=== PATIENT | male | born 1985 | race Caucasian/White ===

== ENCOUNTER 2016-03-23 18:48 | Inpatient (IN) | payer MEDICAID ==
[~2016-03-23] VITALS: Ht 175.3 cm; Wt 104.4 kg
[2016-03-23 17:15] VITALS: BP 106/67
[~2016-03-23 18:48] MED LIST: DIVA500T52 PO; FLUO-191 PO; LORA1TAB3 PO; PANT40TA25 PO; RISP3 PO
[2016-03-23 19:05] VITALS: BP 106/67
[2016-03-23] MEDS: LORazepam 1 MG TABLET PO SCH (19:55)
[2016-03-23] MEDS: RisperiDONE 3 MG TABLET PO SCH (19:55)
[2016-03-23] MEDS: ZOLPIDEM TARTRATE 10 MG TABLET PO PRN (20:50)
[2016-03-23] MEDS: DIVALPROEX SODIUM 500 MG ER TABLET PO SCH (20:50)
[2016-03-24] MEDS: NICOTINE 21 MG/24 HOUR PATCH TD SCH (09:58)
[2016-03-24] MEDS: LORazepam 1 MG TABLET PO SCH ×2 (09:58→16:16)
[2016-03-24] MEDS: RisperiDONE 3 MG TABLET PO SCH ×2 (09:58→16:16)
[2016-03-24] MEDS: FLUoxetine HCL 20 MG CAPSULE PO SCH (09:59)
[2016-03-24 10:00] VITALS: BP 124/71
[2016-03-24] MEDS: LORazepam 1 MG TABLET PO PRN ×2 (13:05→17:06)
[2016-03-24 16:21] VITALS: BP 122/79
[2016-03-24] MEDS: DIVALPROEX SODIUM 500 MG ER TABLET PO SCH (20:40)
[2016-03-24] MEDS: ZOLPIDEM TARTRATE 10 MG TABLET PO PRN (22:41)
[2016-03-25 08:07] VITALS: BP 148/95
[2016-03-25] MEDS: RisperiDONE 3 MG TABLET PO SCH ×2 (08:16→17:19)
[2016-03-25] MEDS: LORazepam 1 MG TABLET PO SCH ×2 (08:16→17:19)
[2016-03-25] MEDS: FLUoxetine HCL 20 MG CAPSULE PO SCH (08:16)
[2016-03-25] MEDS: NICOTINE 21 MG/24 HOUR PATCH TD SCH (08:18)
[2016-03-25] MEDS: LORazepam 1 MG TABLET PO PRN ×3 (10:25→17:52)
[2016-03-25 16:16] VITALS: BP 130/78
[2016-03-25] MEDS: DIVALPROEX SODIUM 500 MG ER TABLET PO SCH (20:20)
[2016-03-25] MEDS ORDERED: QUEtiapine FUMARATE 300 MG ER TABLET PO SCH (21:00)
[2016-03-25] MEDS: ZOLPIDEM TARTRATE 10 MG TABLET PO PRN (21:04)
[2016-03-26 07:52] LABS: ALBUMIN 3.7 g/dL (3.4-5.0); BILIRUBIN,TOTAL 0.4 mg/dL (0.1-1.0); TOTAL PROTEIN, SERUM 6.9 g/dL (6.4-8.2)
[2016-03-26 07:54] LABS: BILIRUBIN,DIRECT 0.1 mg/dL (0.00-0.20)
[2016-03-26 09:00] VITALS: BP 144/89
[2016-03-26] MEDS: FLUoxetine HCL 20 MG CAPSULE PO SCH (10:29)
[2016-03-26] MEDS: LORazepam 1 MG TABLET PO SCH ×2 (10:29→16:17)
[2016-03-26] MEDS: NICOTINE 21 MG/24 HOUR PATCH TD SCH (10:30)
[2016-03-26] MEDS: LORazepam 1 MG TABLET PO PRN ×3 (12:20→18:41)
[2016-03-26 18:45] VITALS: BP 134/86
[2016-03-26] MEDS: DIVALPROEX SODIUM 500 MG ER TABLET PO SCH (20:03)
[2016-03-26] MEDS: ZOLPIDEM TARTRATE 10 MG TABLET PO PRN (20:57)
[2016-03-26] MEDS ORDERED: QUEtiapine FUMARATE 300 MG ER TABLET PO SCH (21:00)
[2016-03-27] MEDS: FLUoxetine HCL 20 MG CAPSULE PO SCH (10:11)
[2016-03-27] MEDS: NICOTINE 21 MG/24 HOUR PATCH TD SCH (10:11)
[2016-03-27] MEDS: LORazepam 1 MG TABLET PO SCH ×2 (10:11→16:21)
[2016-03-27 15:03] VITALS: BP 136/82
[2016-03-27 16:36] VITALS: BP 116/69
[2016-03-27] MEDS: QUEtiapine FUMARATE 200 MG ER TABLET PO SCH (20:18)
[2016-03-27] MEDS: DIVALPROEX SODIUM 500 MG ER TABLET PO SCH (20:18)
[2016-03-27] MEDS: ZOLPIDEM TARTRATE 10 MG TABLET PO PRN (21:21)
[2016-03-27] MEDS: LORazepam 1 MG TABLET PO PRN (21:21)
[2016-03-28 07:05] VITALS: BP 120/70
[2016-03-28 08:50] VITALS: BP 133/85
[2016-03-28] MEDS: LORazepam 1 MG TABLET PO SCH ×2 (09:52→16:14)
[2016-03-28] MEDS: FLUoxetine HCL 20 MG CAPSULE PO SCH (09:53)
[2016-03-28] MEDS: NICOTINE 21 MG/24 HOUR PATCH TD SCH (10:04)
[2016-03-28] MEDS: LORazepam 1 MG TABLET PO PRN ×2 (12:41→18:57)
[2016-03-28 16:42] VITALS: BP 128/74
[2016-03-28] MEDS: QUEtiapine FUMARATE 200 MG ER TABLET PO SCH (19:58)
[2016-03-28] MEDS: DIVALPROEX SODIUM 500 MG ER TABLET PO SCH (19:58)
[2016-03-28] MEDS: ZOLPIDEM TARTRATE 10 MG TABLET PO PRN ×2 (20:08→20:54)
[2016-03-29 08:00] VITALS: BP 103/68
[2016-03-29] MEDS: NICOTINE 21 MG/24 HOUR PATCH TD SCH (09:49)
[2016-03-29] MEDS: FLUoxetine HCL 20 MG CAPSULE PO SCH (09:50)
[2016-03-29] MEDS: LORazepam 1 MG TABLET PO SCH ×2 (09:50→16:05)
[2016-03-29] MEDS: LORazepam 1 MG TABLET PO PRN ×2 (13:07→19:59)
[2016-03-29 16:56] VITALS: BP 125/75
[2016-03-29] MEDS: DIVALPROEX SODIUM 500 MG ER TABLET PO SCH (20:21)
[2016-03-29] MEDS: QUEtiapine FUMARATE 200 MG ER TABLET PO SCH (20:21)
[2016-03-29] MEDS: ZOLPIDEM TARTRATE 10 MG TABLET PO PRN (21:00)
[2016-03-30 06:30] VITALS: BP 123/69
[2016-03-30] MEDS: FLUoxetine HCL 20 MG CAPSULE PO SCH (09:14)
[2016-03-30] MEDS: NICOTINE 21 MG/24 HOUR PATCH TD SCH (09:14)
[2016-03-30] MEDS: LORazepam 1 MG TABLET PO SCH ×2 (09:14→17:05)
[2016-03-30] MEDS: LORazepam 1 MG TABLET PO PRN ×2 (12:55→21:41)
[2016-03-30 13:08] VITALS: BP 128/78
[2016-03-30 18:00] VITALS: BP 133/71
[2016-03-30] MEDS: QUEtiapine FUMARATE 200 MG ER TABLET PO SCH (20:27)
[2016-03-30] MEDS: DIVALPROEX SODIUM 500 MG ER TABLET PO SCH (20:27)
[2016-03-30] MEDS: ZOLPIDEM TARTRATE 5 MG TABLET PO PRN (21:15)
[2016-03-31] MEDS: LORazepam 1 MG TABLET PO PRN ×5 (02:02→22:15)
[2016-03-31 08:38] VITALS: BP 116/75
[2016-03-31] MEDS: LORazepam 1 MG TABLET PO SCH ×2 (08:57→17:19)
[2016-03-31] MEDS: FLUoxetine HCL 20 MG CAPSULE PO SCH (08:57)
[2016-03-31] MEDS: NICOTINE 21 MG/24 HOUR PATCH TD SCH (09:01)
[2016-03-31 16:01] VITALS: BP 136/73
[2016-03-31] MEDS: DIVALPROEX SODIUM 500 MG ER TABLET PO SCH (20:15)
[2016-03-31] MEDS: ZOLPIDEM TARTRATE 5 MG TABLET PO PRN (20:15)
[2016-03-31] MEDS: QUEtiapine FUMARATE 200 MG ER TABLET PO SCH (20:15)
[2016-04-01 00:09] VITALS: BP 120/74
[2016-04-01] MEDS: LORazepam 1 MG TABLET PO SCH ×3 (09:00→16:27)
[2016-04-01] MEDS: FLUoxetine HCL 20 MG CAPSULE PO SCH (09:55)
[2016-04-01] MEDS: NICOTINE 21 MG/24 HOUR PATCH TD SCH (09:55)
[2016-04-01 10:43] VITALS: BP 99/54
[2016-04-01 16:00] VITALS: BP 135/85
[2016-04-01] MEDS: DIVALPROEX SODIUM 500 MG ER TABLET PO SCH (20:17)
[2016-04-01] MEDS: QUEtiapine FUMARATE 200 MG ER TABLET PO SCH (20:17)
[2016-04-01] MEDS: ZOLPIDEM TARTRATE 5 MG TABLET PO PRN (21:17)
[2016-04-01] MEDS: LORazepam 1 MG TABLET PO PRN (22:04)
[2016-04-02 02:09] VITALS: BP 127/68
[2016-04-02 11:00] VITALS: BP 96/58
[2016-04-02] MEDS: FLUoxetine HCL 20 MG CAPSULE PO SCH (11:12)
[2016-04-02] MEDS: LORazepam 1 MG TABLET PO SCH ×2 (11:12→17:06)
[2016-04-02] MEDS: NICOTINE 21 MG/24 HOUR PATCH TD SCH (11:13)
[2016-04-02] MEDS: LORazepam 1 MG TABLET PO PRN ×2 (15:43→23:49)
[2016-04-02 16:00] VITALS: BP 133/73
[2016-04-02 18:15] VITALS: BP 122/66
[2016-04-02] MEDS: QUEtiapine FUMARATE 200 MG ER TABLET PO SCH (20:23)
[2016-04-02] MEDS: DIVALPROEX SODIUM 500 MG ER TABLET PO SCH (20:24)
[2016-04-02] MEDS: ZOLPIDEM TARTRATE 5 MG TABLET PO PRN (21:36)
[2016-04-03] MEDS: IBUPROFEN 600 MG TABLET PO PRN (00:02)
[2016-04-03 09:00] VITALS: BP 123/79
[2016-04-03] MEDS: FLUoxetine HCL 20 MG CAPSULE PO SCH (11:49)
[2016-04-03] MEDS: LORazepam 1 MG TABLET PO SCH ×2 (11:50→16:16)
[2016-04-03] MEDS: NICOTINE 21 MG/24 HOUR PATCH TD SCH (11:50)
[2016-04-03 16:30] VITALS: BP 103/60
[2016-04-03] MEDS: LORazepam 1 MG TABLET PO PRN ×2 (19:49→22:43)
[2016-04-03] MEDS: QUEtiapine FUMARATE 200 MG ER TABLET PO SCH (20:20)
[2016-04-03] MEDS: DIVALPROEX SODIUM 500 MG ER TABLET PO SCH (20:21)
[2016-04-03] MEDS: ZOLPIDEM TARTRATE 5 MG TABLET PO PRN (21:42)
[2016-04-04 08:30] VITALS: BP 109/56
[2016-04-04] MEDS: NICOTINE 21 MG/24 HOUR PATCH TD SCH (09:23)
[2016-04-04] MEDS: FLUoxetine HCL 20 MG CAPSULE PO SCH (09:23)
[2016-04-04] MEDS: LORazepam 1 MG TABLET PO SCH ×2 (09:23→16:38)
[2016-04-04] MEDS: LORazepam 1 MG TABLET PO PRN ×3 (14:52→23:55)
[2016-04-04 16:00] VITALS: BP 123/78
[2016-04-04] MEDS: QUEtiapine FUMARATE 300 MG TABLET PO SCH (20:27)
[2016-04-04] MEDS: DIVALPROEX SODIUM 500 MG ER TABLET PO SCH (20:27)
[2016-04-04] MEDS: ZOLPIDEM TARTRATE 5 MG TABLET PO PRN (21:21)
[2016-04-05 01:43] VITALS: BP 132/79
[2016-04-05] MEDS: IBUPROFEN 600 MG TABLET PO PRN (01:45)
[2016-04-05] MEDS: LORazepam 1 MG TABLET PO PRN ×4 (02:57→23:59)
[2016-04-05] MEDS: ACETAMINOPHEN 325 MG TABLET PO PRN (04:25)
[2016-04-05] MEDS: QUEtiapine FUMARATE 300 MG TABLET PO SCH ×3 (08:43→16:05)
[2016-04-05] MEDS: FLUoxetine HCL 20 MG CAPSULE PO SCH (08:43)
[2016-04-05] MEDS: LORazepam 1 MG TABLET PO SCH ×2 (08:43→16:05)
[2016-04-05] MEDS: NICOTINE 21 MG/24 HOUR PATCH TD SCH (08:48)
[2016-04-05 16:18] VITALS: BP 119/70
[2016-04-05] MEDS: DIVALPROEX SODIUM 500 MG ER TABLET PO SCH (20:30)
[2016-04-05] MEDS: ZOLPIDEM TARTRATE 5 MG TABLET PO PRN (21:23)
[2016-04-06 06:29] VITALS: BP 124/74
[2016-04-06 08:00] VITALS: BP 123/77
[2016-04-06] MEDS: FLUoxetine HCL 20 MG CAPSULE PO SCH ×2 (09:00→11:12)
[2016-04-06] MEDS: QUEtiapine FUMARATE 300 MG TABLET PO SCH ×3 (09:00→17:04)
[2016-04-06] MEDS: LORazepam 1 MG TABLET PO SCH ×2 (09:00→17:04)
[2016-04-06] MEDS: NICOTINE 21 MG/24 HOUR PATCH TD SCH (11:11)
[2016-04-06 16:18] VITALS: BP 110/72
[2016-04-06] MEDS: DIVALPROEX SODIUM 500 MG ER TABLET PO SCH (20:36)
[2016-04-06] MEDS: ZOLPIDEM TARTRATE 5 MG TABLET PO PRN (21:39)
[2016-04-06] MEDS: LORazepam 1 MG TABLET PO PRN ×2 (21:39→23:40)
[2016-04-07 03:32] VITALS: BP 144/77
[2016-04-07 08:15] VITALS: BP 118/74
[2016-04-07] MEDS: QUEtiapine FUMARATE 300 MG TABLET PO SCH ×3 (09:00→16:20)
[2016-04-07] MEDS: LORazepam 1 MG TABLET PO SCH ×2 (09:00→16:20)
[2016-04-07] MEDS: NICOTINE 21 MG/24 HOUR PATCH TD SCH (09:00)
[2016-04-07] MEDS: FLUoxetine HCL 20 MG CAPSULE PO SCH (11:25)
[2016-04-07 16:45] VITALS: BP 111/71
[2016-04-07] MEDS: DIVALPROEX SODIUM 500 MG ER TABLET PO SCH (19:56)
[2016-04-07] MEDS: ZOLPIDEM TARTRATE 5 MG TABLET PO PRN (21:51)
[2016-04-07] MEDS: LORazepam 1 MG TABLET PO PRN ×2 (21:51→23:59)
[2016-04-08] MEDS: LORazepam 1 MG TABLET PO PRN ×4 (06:13→22:37)
[2016-04-08 08:02] VITALS: BP 123/73
[2016-04-08] MEDS: FLUoxetine HCL 20 MG CAPSULE PO SCH (09:17)
[2016-04-08] MEDS: QUEtiapine FUMARATE 300 MG TABLET PO SCH ×3 (09:17→16:26)
[2016-04-08] MEDS: LORazepam 1 MG TABLET PO SCH ×2 (09:18→16:27)
[2016-04-08] MEDS: NICOTINE 21 MG/24 HOUR PATCH TD SCH (09:19)
[2016-04-08 16:00] VITALS: BP 124/78
[2016-04-08] MEDS: DIVALPROEX SODIUM 500 MG ER TABLET PO SCH (20:23)
[2016-04-08] MEDS: ZOLPIDEM TARTRATE 5 MG TABLET PO PRN (21:39)
[2016-04-09] MEDS: LORazepam 1 MG TABLET PO PRN ×3 (03:55→18:59)
[2016-04-09 08:16] VITALS: BP 120/80
[2016-04-09] MEDS: NICOTINE 21 MG/24 HOUR PATCH TD SCH (09:39)
[2016-04-09] MEDS: FLUoxetine HCL 20 MG CAPSULE PO SCH (09:40)
[2016-04-09] MEDS: QUEtiapine FUMARATE 200 MG TABLET PO SCH ×2 (09:41→20:38)
[2016-04-09] MEDS: LORazepam 1 MG TABLET PO SCH ×2 (09:41→16:54)
[2016-04-09 16:15] VITALS: BP 128/78
[2016-04-09] MEDS: DIVALPROEX SODIUM 500 MG ER TABLET PO SCH (20:38)
[2016-04-09] MEDS: ZOLPIDEM TARTRATE 5 MG TABLET PO PRN (21:03)
[2016-04-10 02:56] VITALS: BP 133/89
[2016-04-10] MEDS: LORazepam 1 MG TABLET PO PRN ×2 (02:57→12:22)
[2016-04-10 08:08] VITALS: BP 134/70
[2016-04-10] MEDS: LORazepam 1 MG TABLET PO SCH ×2 (08:14→18:30)
[2016-04-10] MEDS: QUEtiapine FUMARATE 200 MG TABLET PO SCH ×2 (08:14→20:33)
[2016-04-10] MEDS: FLUoxetine HCL 20 MG CAPSULE PO SCH (08:14)
[2016-04-10] MEDS: NICOTINE 21 MG/24 HOUR PATCH TD SCH (08:15)
[2016-04-10] MEDS: DIVALPROEX SODIUM 500 MG ER TABLET PO SCH (20:33)
[2016-04-10 21:23] VITALS: BP 125/74
[2016-04-11] MEDS: LORazepam 1 MG TABLET PO PRN ×5 (01:27→21:47)
[2016-04-11] MEDS: ZOLPIDEM TARTRATE 5 MG TABLET PO PRN (01:27)
[2016-04-11 02:01] VITALS: BP 139/94
[2016-04-11 08:30] VITALS: BP 120/78
[2016-04-11] MEDS: LORazepam 1 MG TABLET PO SCH ×2 (08:32→18:30)
[2016-04-11] MEDS: NICOTINE 21 MG/24 HOUR PATCH TD SCH (08:33)
[2016-04-11] MEDS: QUEtiapine FUMARATE 200 MG TABLET PO SCH ×2 (08:33→21:04)
[2016-04-11] MEDS: FLUoxetine HCL 20 MG CAPSULE PO SCH (08:33)
[2016-04-11 16:08] VITALS: BP 118/78
[2016-04-11] MEDS: DIVALPROEX SODIUM 500 MG ER TABLET PO SCH (21:04)
[2016-04-11 21:44] VITALS: BP 115/77
[2016-04-11] MEDS: ACETAMINOPHEN 325 MG TABLET PO PRN (21:48)
[2016-04-12] MEDS: LORazepam 1 MG TABLET PO PRN ×2 (00:09→03:12)
[2016-04-12 00:49] VITALS: BP 127/89
[2016-04-12 08:01] VITALS: BP 147/97
[2016-04-12] MEDS: FLUoxetine HCL 20 MG CAPSULE PO SCH (09:41)
[2016-04-12] MEDS: LORazepam 1 MG TABLET PO SCH ×2 (09:41→16:33)
[2016-04-12] MEDS: QUEtiapine FUMARATE 200 MG TABLET PO SCH ×2 (09:42→20:22)
[2016-04-12] MEDS: NICOTINE 21 MG/24 HOUR PATCH TD SCH (09:43)
[2016-04-12] MEDS: DIVALPROEX SODIUM 500 MG ER TABLET PO SCH (20:22)
[2016-04-12 20:46] VITALS: BP 139/81
[2016-04-13] MEDS: LORazepam 1 MG TABLET PO PRN ×4 (00:48→21:11)
[2016-04-13] MEDS: ZOLPIDEM TARTRATE 5 MG TABLET PO PRN ×2 (00:48→22:01)
[2016-04-13 05:45] VITALS: BP 123/85
[2016-04-13] MEDS: LORazepam 1 MG TABLET PO SCH ×2 (09:05→17:19)
[2016-04-13] MEDS: FLUoxetine HCL 20 MG CAPSULE PO SCH (09:05)
[2016-04-13] MEDS: QUEtiapine FUMARATE 200 MG TABLET PO SCH ×2 (09:05→21:11)
[2016-04-13] MEDS: NICOTINE 21 MG/24 HOUR PATCH TD SCH (09:07)
[2016-04-13 11:23] VITALS: BP 130/88
[2016-04-13 16:06] VITALS: BP 130/76
[2016-04-13] MEDS: DIVALPROEX SODIUM 500 MG ER TABLET PO SCH (21:11)
[2016-04-14 03:35] VITALS: BP 140/86
[2016-04-14] MEDS: LORazepam 1 MG TABLET PO PRN ×2 (03:36)
[2016-04-14] MEDS: ACETAMINOPHEN 325 MG TABLET PO PRN (03:36)
[2016-04-14 08:00] VITALS: BP 135/65
[2016-04-14] MEDS: LORazepam 1 MG TABLET PO SCH ×2 (09:41→18:09)
[2016-04-14] MEDS: FLUoxetine HCL 20 MG CAPSULE PO SCH (09:42)
[2016-04-14] MEDS: NICOTINE 21 MG/24 HOUR PATCH TD SCH (09:42)
[2016-04-14] MEDS: QUEtiapine FUMARATE 200 MG TABLET PO SCH ×2 (09:42→21:27)
[2016-04-14] MEDS: DIVALPROEX SODIUM 500 MG ER TABLET PO SCH (21:27)
[2016-04-14] MEDS: ZOLPIDEM TARTRATE 5 MG TABLET PO PRN (22:43)
[2016-04-15] MEDS: LORazepam 1 MG TABLET PO PRN ×2 (03:12→11:57)
[2016-04-15 06:04] VITALS: BP 113/62
[2016-04-15] MEDS: QUEtiapine FUMARATE 200 MG TABLET PO SCH ×2 (08:12→21:28)
[2016-04-15] MEDS: LORazepam 1 MG TABLET PO SCH ×2 (08:12→16:49)
[2016-04-15] MEDS: FLUoxetine HCL 20 MG CAPSULE PO SCH (08:12)
[2016-04-15 08:17] VITALS: BP 119/74
[2016-04-15] MEDS: NICOTINE 21 MG/24 HOUR PATCH TD SCH (09:00)
[2016-04-15 16:08] VITALS: BP 121/75
[2016-04-15] MEDS: DIVALPROEX SODIUM 500 MG ER TABLET PO SCH (21:29)
[2016-04-16 00:16] VITALS: BP 118/71
[2016-04-16] MEDS: ZOLPIDEM TARTRATE 5 MG TABLET PO PRN (02:32)
[2016-04-16] MEDS: LORazepam 1 MG TABLET PO PRN (02:32)
[2016-04-16 06:28] LABS: BASOPHILS % (AUTO) 0.3 % (0.0-2.0); EOSINOPHILS % (AUTO) 3.6 % (1.0-6.0); HEMATOCRIT 42.9 % (41-53); LYMPHOCYTES # (AUTO) 1.3 K/uL (1.0-4.8); LYMPHOCYTES % (AUTO) 20.9 % (22.0-44.0); MEAN CORPUSCULAR HEMOGLOBIN 31.9 pg (26.0-34.0); MEAN CORPUSCULAR VOLUME 91 fL (80-100); MONOCYTES # (AUTO) 0.5 K/uL (0.1-1.0); MONOCYTES % (AUTO) 8.7 % (2.0-9.0); NEUTROPHILS # (AUTO) 4.1 K/uL (1.8-7.7); NEUTROPHILS % (AUTO) 66.5 % (40.0-70.0); PLATELET COUNT (AUTO) 177 K/uL (150-450); RED BLOOD CELL COUNT(AUTO) 4.71 MIL/uL (4.50-5.90); RED CELL DISTRIBUTION WIDTH 12.6 % (11.5-14.5); WHITE BLOOD COUNT (AUTO) 6.1 K/uL (4.5-11.0)
[2016-04-16 06:53] LABS: ALANINE AMINOTRANSFERASE 15 U/L (12-78); ALBUMIN 3.3 g/dL (3.4-5.0); ANION GAP 9 mmol/L (8-16); ASPARTATE AMINOTRANSFERASE 11 U/L (15-37); BILIRUBIN,TOTAL 0.2 mg/dL (0.1-1.0); CALCIUM, TOTAL 8.8 mg/dL (8.8-10.5); CARBON DIOXIDE 28 mmol/L (22-29); CHLORIDE 100 mmol/L (98-107); CREATININE 0.89 mg/dL (0.60-1.30); GLOMERULAR FILTR. RATE CALC > 60 mL/min (>60); POTASSIUM 3.6 mmol/L (3.5-5.1); SODIUM SERUM 137 mmol/L (136-145); TOTAL PROTEIN, SERUM 6.9 g/dL (6.4-8.2); UREA NITROGEN, BLOOD 14 mg/dL (7-18); VALPROIC ACID 81 mcg/mL (50-100)
[2016-04-16 08:00] VITALS: BP 138/88
[2016-04-16] MEDS: LORazepam 1 MG TABLET PO SCH ×2 (08:09→17:22)
[2016-04-16] MEDS: FLUoxetine HCL 20 MG CAPSULE PO SCH (08:09)
[2016-04-16] MEDS: QUEtiapine FUMARATE 200 MG TABLET PO SCH ×2 (08:10→21:22)
[2016-04-16] MEDS: NICOTINE 21 MG/24 HOUR PATCH TD SCH (09:00)
[2016-04-16 16:44] VITALS: BP 124/73
[2016-04-16] MEDS: DIVALPROEX SODIUM 500 MG ER TABLET PO SCH (21:22)
[2016-04-17] MEDS: LORazepam 1 MG TABLET PO PRN ×2 (03:35→06:48)
[2016-04-17 06:49] VITALS: BP 135/85
[2016-04-17 08:00] VITALS: BP 127/85
[2016-04-17] MEDS: QUEtiapine FUMARATE 200 MG TABLET PO SCH ×2 (09:40→21:53)
[2016-04-17] MEDS: FLUoxetine HCL 20 MG CAPSULE PO SCH (09:41)
[2016-04-17] MEDS: LORazepam 1 MG TABLET PO SCH ×2 (09:41→17:19)
[2016-04-17] MEDS: NICOTINE 21 MG/24 HOUR PATCH TD SCH (09:43)
[2016-04-17 19:59] VITALS: BP 127/72
[2016-04-17] MEDS: DIVALPROEX SODIUM 500 MG ER TABLET PO SCH (21:52)
[2016-04-18] MEDS: LORazepam 1 MG TABLET PO PRN ×3 (02:16→11:12)
[2016-04-18 02:25] VITALS: BP 124/79
[2016-04-18 08:30] VITALS: BP 147/95
[2016-04-18] MEDS: FLUoxetine HCL 20 MG CAPSULE PO SCH (08:57)
[2016-04-18] MEDS: LORazepam 1 MG TABLET PO SCH ×2 (08:57→17:24)
[2016-04-18] MEDS: QUEtiapine FUMARATE 200 MG TABLET PO SCH ×2 (08:57→21:35)
[2016-04-18] MEDS: NICOTINE 21 MG/24 HOUR PATCH TD SCH (09:00)
[2016-04-18 16:46] VITALS: BP 117/66
[2016-04-18] MEDS: DIVALPROEX SODIUM 500 MG ER TABLET PO SCH (21:35)
[2016-04-19 04:17] VITALS: BP 126/80
[2016-04-19 08:29] VITALS: BP 147/79
[2016-04-19] MEDS: LORazepam 1 MG TABLET PO SCH ×2 (08:55→17:33)
[2016-04-19] MEDS: QUEtiapine FUMARATE 200 MG TABLET PO SCH ×2 (08:55→21:45)
[2016-04-19] MEDS: NICOTINE 21 MG/24 HOUR PATCH TD SCH (08:55)
[2016-04-19] MEDS: FLUoxetine HCL 20 MG CAPSULE PO SCH (08:55)
[2016-04-19 19:38] VITALS: BP 131/82
[2016-04-19] MEDS: DIVALPROEX SODIUM 500 MG ER TABLET PO SCH (21:46)
[2016-04-20] MEDS: LORazepam 1 MG TABLET PO PRN ×3 (03:59→11:28)
[2016-04-20 08:15] VITALS: BP 135/69
[2016-04-20] MEDS: LORazepam 1 MG TABLET PO SCH ×2 (09:27→17:02)
[2016-04-20] MEDS: FLUoxetine HCL 20 MG CAPSULE PO SCH (09:27)
[2016-04-20] MEDS: QUEtiapine FUMARATE 200 MG TABLET PO SCH ×2 (09:28→20:05)
[2016-04-20] MEDS: NICOTINE 21 MG/24 HOUR PATCH TD SCH (09:30)
[2016-04-20 17:08] VITALS: BP 118/60
[2016-04-20] MEDS: DIVALPROEX SODIUM 500 MG ER TABLET PO SCH (20:04)
[2016-04-21] MEDS: LORazepam 1 MG TABLET PO PRN ×3 (04:57→23:42)
[2016-04-21] MEDS: FLUoxetine HCL 20 MG CAPSULE PO SCH (08:28)
[2016-04-21] MEDS: LORazepam 1 MG TABLET PO SCH ×2 (08:28→16:43)
[2016-04-21] MEDS: QUEtiapine FUMARATE 200 MG TABLET PO SCH ×2 (08:29→20:43)
[2016-04-21] MEDS: NICOTINE 21 MG/24 HOUR PATCH TD SCH (08:30)
[2016-04-21 08:34] VITALS: BP 133/83
[2016-04-21 16:58] VITALS: BP 158/86
[2016-04-21] MEDS: DIVALPROEX SODIUM 500 MG ER TABLET PO SCH (20:44)
[2016-04-21] MEDS: ZOLPIDEM TARTRATE 5 MG TABLET PO PRN (23:42)
[2016-04-22] VITALS: BP 125/62
[2016-04-22] MEDS: LORazepam 1 MG TABLET PO PRN ×2 (05:53→11:28)
[2016-04-22 08:38] VITALS: BP 123/78
[2016-04-22] MEDS: NICOTINE 21 MG/24 HOUR PATCH TD SCH (08:39)
[2016-04-22] MEDS: QUEtiapine FUMARATE 200 MG TABLET PO SCH ×2 (08:39→20:08)
[2016-04-22] MEDS: FLUoxetine HCL 20 MG CAPSULE PO SCH (08:40)
[2016-04-22] MEDS: LORazepam 1 MG TABLET PO SCH ×2 (08:40→16:08)
[2016-04-22 16:02] VITALS: BP 139/85
[2016-04-22] MEDS: DIVALPROEX SODIUM 500 MG ER TABLET PO SCH (20:08)
[2016-04-23] MEDS: FLUoxetine HCL 20 MG CAPSULE PO SCH (08:44)
[2016-04-23] MEDS: LORazepam 1 MG TABLET PO SCH ×2 (08:45→16:12)
[2016-04-23] MEDS: QUEtiapine FUMARATE 200 MG TABLET PO SCH ×2 (08:45→20:20)
[2016-04-23] MEDS: NICOTINE 21 MG/24 HOUR PATCH TD SCH (08:46)
[2016-04-23 09:19] VITALS: BP 115/62
[2016-04-23] MEDS: LORazepam 1 MG TABLET PO PRN ×2 (11:12→13:14)
[2016-04-23 16:40] VITALS: BP 133/75
[2016-04-23] MEDS: DIVALPROEX SODIUM 500 MG ER TABLET PO SCH (20:20)
[2016-04-24] MEDS: LORazepam 1 MG TABLET PO PRN ×2 (06:47→13:53)
[2016-04-24] MEDS: LORazepam 1 MG TABLET PO SCH ×2 (08:19→18:02)
[2016-04-24] MEDS: NICOTINE 21 MG/24 HOUR PATCH TD SCH (08:19)
[2016-04-24] MEDS: FLUoxetine HCL 20 MG CAPSULE PO SCH (08:19)
[2016-04-24] MEDS: QUEtiapine FUMARATE 200 MG TABLET PO SCH ×2 (08:23→20:13)
[2016-04-24 08:30] VITALS: BP 136/71
[2016-04-24 16:40] VITALS: BP 135/84
[2016-04-24] MEDS: DIVALPROEX SODIUM 500 MG ER TABLET PO SCH (20:13)
[2016-04-25] MEDS: LORazepam 1 MG TABLET PO PRN (04:53)
[2016-04-25] MEDS: LORazepam 1 MG TABLET PO SCH ×2 (08:25→16:13)
[2016-04-25] MEDS: NICOTINE 21 MG/24 HOUR PATCH TD SCH (08:26)
[2016-04-25] MEDS: QUEtiapine FUMARATE 200 MG TABLET PO SCH ×2 (08:26→20:04)
[2016-04-25] MEDS: FLUoxetine HCL 20 MG CAPSULE PO SCH (08:26)
[2016-04-25 08:30] VITALS: BP 131/70
[2016-04-25 16:33] VITALS: BP 144/84
[2016-04-25] MEDS: DIVALPROEX SODIUM 500 MG ER TABLET PO SCH (20:04)
[2016-04-25] MEDS: ZOLPIDEM TARTRATE 5 MG TABLET PO PRN (20:35)
[2016-04-26 08:00] VITALS: BP 134/87
[2016-04-26] MEDS: FLUoxetine HCL 20 MG CAPSULE PO SCH (08:07)
[2016-04-26] MEDS: QUEtiapine FUMARATE 200 MG TABLET PO SCH ×2 (08:07→21:16)
[2016-04-26] MEDS: LORazepam 1 MG TABLET PO SCH ×2 (08:07→16:24)
[2016-04-26] MEDS: NICOTINE 21 MG/24 HOUR PATCH TD SCH (09:09)
[2016-04-26] MEDS: LORazepam 1 MG TABLET PO PRN (14:07)
[2016-04-26 16:49] VITALS: BP 133/76
[2016-04-26] MEDS: DIVALPROEX SODIUM 500 MG ER TABLET PO SCH (21:16)
[2016-04-27 08:00] VITALS: BP 141/93
[2016-04-27] MEDS: LORazepam 1 MG TABLET PO SCH ×2 (08:11→17:03)
[2016-04-27] MEDS: FLUoxetine HCL 20 MG CAPSULE PO SCH (08:11)
[2016-04-27] MEDS: HALOPERIDOL 5 MG TABLET PO SCH ×2 (08:11→17:02)
[2016-04-27] MEDS: QUEtiapine FUMARATE 200 MG TABLET PO SCH ×2 (08:11→20:50)
[2016-04-27] MEDS: NICOTINE 21 MG/24 HOUR PATCH TD SCH (08:14)
[2016-04-27] MEDS: LORazepam 1 MG TABLET PO PRN ×2 (11:08→18:53)
[2016-04-27 19:02] VITALS: BP 125/70
[2016-04-27] MEDS: DIVALPROEX SODIUM 500 MG ER TABLET PO SCH (20:50)
[2016-04-27] MEDS: ZOLPIDEM TARTRATE 5 MG TABLET PO PRN (22:16)
[2016-04-28] MEDS: HALOPERIDOL 5 MG TABLET PO SCH ×2 (09:47→16:39)
[2016-04-28] MEDS: LORazepam 1 MG TABLET PO SCH ×2 (09:47→16:39)
[2016-04-28] MEDS: QUEtiapine FUMARATE 200 MG TABLET PO SCH ×2 (09:47→21:02)
[2016-04-28] MEDS: FLUoxetine HCL 20 MG CAPSULE PO SCH (09:47)
[2016-04-28] MEDS: NICOTINE 21 MG/24 HOUR PATCH TD SCH (09:54)
[2016-04-28] MEDS: LORazepam 1 MG TABLET PO PRN ×3 (11:27→18:07)
[2016-04-28 12:50] VITALS: BP 139/89
[2016-04-28 16:43] VITALS: BP 138/76
[2016-04-28] MEDS: DIVALPROEX SODIUM 500 MG ER TABLET PO SCH (21:02)
[2016-04-29] MEDS: QUEtiapine FUMARATE 200 MG TABLET PO SCH ×2 (09:50→21:05)
[2016-04-29] MEDS: FLUoxetine HCL 20 MG CAPSULE PO SCH (09:50)
[2016-04-29] MEDS: NICOTINE 21 MG/24 HOUR PATCH TD SCH (09:51)
[2016-04-29] MEDS: LORazepam 1 MG TABLET PO SCH ×2 (09:51→16:31)
[2016-04-29] MEDS: HALOPERIDOL 5 MG TABLET PO SCH ×2 (09:52→17:00)
[2016-04-29 13:54] VITALS: BP 122/78
[2016-04-29] MEDS: LORazepam 1 MG TABLET PO PRN (14:24)
[2016-04-29 16:25] VITALS: BP 121/67
[2016-04-29] MEDS: DIVALPROEX SODIUM 500 MG ER TABLET PO SCH (21:05)
[2016-04-30 08:05] VITALS: BP 107/64
[2016-04-30] MEDS: HALOPERIDOL 5 MG TABLET PO SCH ×2 (09:00→17:00)
[2016-04-30] MEDS: FLUoxetine HCL 20 MG CAPSULE PO SCH (09:40)
[2016-04-30] MEDS: NICOTINE 21 MG/24 HOUR PATCH TD SCH (09:40)
[2016-04-30] MEDS: QUEtiapine FUMARATE 200 MG TABLET PO SCH ×2 (09:40→20:24)
[2016-04-30] MEDS: LORazepam 1 MG TABLET PO SCH ×2 (09:41→16:13)
[2016-04-30] MEDS: LORazepam 1 MG TABLET PO PRN ×2 (11:23→20:24)
[2016-04-30 16:57] VITALS: BP 110/71
[2016-04-30] MEDS: DIVALPROEX SODIUM 500 MG ER TABLET PO SCH (20:25)
[2016-04-30] MEDS: ZOLPIDEM TARTRATE 5 MG TABLET PO PRN (21:43)
[2016-05-01 08:05] VITALS: BP 127/81
[2016-05-01] MEDS: HALOPERIDOL 5 MG TABLET PO SCH ×2 (09:00→16:17)
[2016-05-01] MEDS: FLUoxetine HCL 20 MG CAPSULE PO SCH (10:01)
[2016-05-01] MEDS: QUEtiapine FUMARATE 200 MG TABLET PO SCH ×2 (10:01→20:06)
[2016-05-01] MEDS: LORazepam 1 MG TABLET PO SCH ×2 (10:02→16:17)
[2016-05-01] MEDS: NICOTINE 21 MG/24 HOUR PATCH TD SCH (10:02)
[2016-05-01 17:46] VITALS: BP 132/79
[2016-05-01] MEDS: LORazepam 1 MG TABLET PO PRN (19:01)
[2016-05-01] MEDS: DIVALPROEX SODIUM 500 MG ER TABLET PO SCH (20:06)
[2016-05-01] MEDS: ZOLPIDEM TARTRATE 5 MG TABLET PO PRN (21:29)
[2016-05-02 08:05] VITALS: BP 125/86
[2016-05-02] MEDS: HALOPERIDOL 5 MG TABLET PO SCH ×2 (09:00→16:34)
[2016-05-02] MEDS: FLUoxetine HCL 20 MG CAPSULE PO SCH (09:28)
[2016-05-02] MEDS: LORazepam 1 MG TABLET PO SCH ×2 (09:28→16:32)
[2016-05-02] MEDS: QUEtiapine FUMARATE 200 MG TABLET PO SCH ×2 (09:30→20:32)
[2016-05-02] MEDS: NICOTINE 21 MG/24 HOUR PATCH TD SCH (09:31)
[2016-05-02] MEDS: LORazepam 1 MG TABLET PO PRN (19:57)
[2016-05-02] MEDS: DIVALPROEX SODIUM 500 MG ER TABLET PO SCH (20:31)
[2016-05-02] MEDS: ZOLPIDEM TARTRATE 5 MG TABLET PO PRN (21:10)
[2016-05-02 22:22] VITALS: BP 136/80
[2016-05-03 08:05] VITALS: BP 117/63
[2016-05-03] MEDS: HALOPERIDOL 5 MG TABLET PO SCH ×2 (09:00→16:07)
[2016-05-03] MEDS: FLUoxetine HCL 20 MG CAPSULE PO SCH (10:23)
[2016-05-03] MEDS: QUEtiapine FUMARATE 200 MG TABLET PO SCH ×2 (10:24→19:56)
[2016-05-03] MEDS: LORazepam 1 MG TABLET PO SCH ×2 (10:24→16:06)
[2016-05-03] MEDS: NICOTINE 21 MG/24 HOUR PATCH TD SCH (10:25)
[2016-05-03 17:44] VITALS: BP 123/77
[2016-05-03] MEDS: LORazepam 1 MG TABLET PO PRN (18:21)
[2016-05-03] MEDS: DIVALPROEX SODIUM 500 MG ER TABLET PO SCH (19:56)
[2016-05-03] MEDS: ZOLPIDEM TARTRATE 5 MG TABLET PO PRN (21:22)
[2016-05-04] MEDS: LORazepam 1 MG TABLET PO SCH ×2 (09:00→16:33)
[2016-05-04] MEDS: HALOPERIDOL 5 MG TABLET PO SCH ×2 (09:00→16:32)
[2016-05-04] MEDS: QUEtiapine FUMARATE 200 MG TABLET PO SCH ×2 (09:00→20:17)
[2016-05-04] MEDS: FLUoxetine HCL 20 MG CAPSULE PO SCH (09:00)
[2016-05-04] MEDS: NICOTINE 21 MG/24 HOUR PATCH TD SCH (09:01)
[2016-05-04] MEDS: LORazepam 1 MG TABLET PO PRN ×2 (13:56→18:56)
[2016-05-04 17:13] VITALS: BP 130/84
[2016-05-04 20:14] VITALS: BP 127/78
[2016-05-04] MEDS: ACETAMINOPHEN 325 MG TABLET PO PRN (20:17)
[2016-05-04] MEDS: DIVALPROEX SODIUM 500 MG ER TABLET PO SCH (20:17)
[2016-05-05 08:30] VITALS: BP 153/68
[2016-05-05] MEDS: HALOPERIDOL 5 MG TABLET PO SCH ×2 (09:00→16:10)
[2016-05-05] MEDS: QUEtiapine FUMARATE 200 MG TABLET PO SCH ×2 (09:00→20:11)
[2016-05-05] MEDS: FLUoxetine HCL 20 MG CAPSULE PO SCH (09:45)
[2016-05-05] MEDS: LORazepam 1 MG TABLET PO SCH ×2 (09:45→16:10)
[2016-05-05] MEDS: LORazepam 1 MG TABLET PO PRN (12:50)
[2016-05-05] MEDS: NICOTINE 21 MG/24 HOUR PATCH TD SCH (12:52)
[2016-05-05 16:59] VITALS: BP 127/62
[2016-05-05] MEDS: ACETAMINOPHEN 325 MG TABLET PO PRN (20:12)
[2016-05-05] MEDS: DIVALPROEX SODIUM 500 MG ER TABLET PO SCH (20:12)
[2016-05-05 20:14] VITALS: BP 130/65
[2016-05-06 08:00] VITALS: BP 116/75
[2016-05-06] MEDS: HALOPERIDOL 5 MG TABLET PO SCH ×2 (09:00→17:00)
[2016-05-06] MEDS: QUEtiapine FUMARATE 200 MG TABLET PO SCH ×2 (09:00→20:46)
[2016-05-06] MEDS: FLUoxetine HCL 20 MG CAPSULE PO SCH (10:21)
[2016-05-06] MEDS: NICOTINE 21 MG/24 HOUR PATCH TD SCH (10:21)
[2016-05-06] MEDS: LORazepam 1 MG TABLET PO SCH ×2 (10:21→18:07)
[2016-05-06] MEDS: LORazepam 1 MG TABLET PO PRN ×2 (15:00→20:47)
[2016-05-06 16:00] VITALS: BP 141/103
[2016-05-06] MEDS: DIVALPROEX SODIUM 500 MG ER TABLET PO SCH (20:46)
[2016-05-06] MEDS ORDERED: HALOPERIDOL 10 MG TABLET PO SCH (21:00)
[2016-05-07 07:05] LABS: BASOPHILS # (AUTO) 0.03 K/uL (0.00-0.20); BASOPHILS % (AUTO) 0.5 % (0.0-2.0); EOSINOPHILS # (AUTO) 0.29 K/uL (0.00-0.70); EOSINOPHILS % (AUTO) 5.93 % (1.0-6.0); HEMATOCRIT 47.1 % (41-53); HEMOGLOBIN 15.9 g/dL (13.5-17.5); LYMPHOCYTES # (AUTO) 1.9 K/uL (1.0-4.8); LYMPHOCYTES % (AUTO) 39.4 % (22.0-44.0); MEAN CORPUSCULAR HEMOGLOBIN 31.3 pg (26.0-34.0); MEAN CORPUSCULAR HGB CONC 33.8 G/dL (31.0-37.0); MEAN CORPUSCULAR VOLUME 93 fL (80-100); MONOCYTES # (AUTO) 0.5 K/uL (0.1-1.0); MONOCYTES % (AUTO) 10.1 % (2.0-9.0); NEUTROPHILS # (AUTO) 2.2 K/uL (1.8-7.7); PLATELET COUNT (AUTO) 175 K/uL (150-450); RED BLOOD CELL COUNT(AUTO) 5.08 MIL/uL (4.50-5.90); RED CELL DISTRIBUTION WIDTH 12.7 % (11.5-14.5); WHITE BLOOD COUNT (AUTO) 4.9 K/uL (4.5-11.0)
[2016-05-07 07:33] LABS: ALANINE AMINOTRANSFERASE 18 U/L (12-78); ALBUMIN 3.6 g/dL (3.4-5.0); ANION GAP 10 mmol/L (8-16); ASPARTATE AMINOTRANSFERASE 13 U/L (15-37); BILIRUBIN,TOTAL 0.4 mg/dL (0.1-1.0); CALCIUM, TOTAL 8.5 mg/dL (8.8-10.5); CARBON DIOXIDE 26 mmol/L (22-29); CHLORIDE 100 mmol/L (98-107); GLOMERULAR FILTR. RATE CALC > 60 mL/min (>60); POTASSIUM 3.8 mmol/L (3.5-5.1); SODIUM SERUM 136 mmol/L (136-145); TOTAL PROTEIN, SERUM 7.1 g/dL (6.4-8.2); UREA NITROGEN, BLOOD 15 mg/dL (7-18); VALPROIC ACID 85 mcg/mL (50-100)
[2016-05-07 08:16] VITALS: BP 124/66
[2016-05-07] MEDS: FLUoxetine HCL 20 MG CAPSULE PO SCH (08:18)
[2016-05-07] MEDS: LORazepam 0.5 MG TABLET PO SCH ×3 (08:18→21:26)
[2016-05-07] MEDS: NICOTINE 21 MG/24 HOUR PATCH TD SCH (08:19)
[2016-05-07 10:15] VITALS: BP 130/70
[2016-05-07] MEDS: TraMADol HCL 50 MG TABLET PO PRN (10:16)
[2016-05-07] MEDS: LORazepam 1 MG TABLET PO PRN ×4 (13:02→16:00)
[2016-05-07 19:38] VITALS: BP 117/77
[2016-05-07] MEDS: DIVALPROEX SODIUM 500 MG ER TABLET PO SCH (22:09)
[2016-05-07] MEDS: QUEtiapine FUMARATE 200 MG TABLET PO SCH (22:11)
[2016-05-08 08:00] VITALS: BP 121/60
[2016-05-08] MEDS: LORazepam 0.5 MG TABLET PO SCH (08:00)
[2016-05-08] MEDS: FLUoxetine HCL 20 MG CAPSULE PO SCH (11:12)
[2016-05-08] MEDS: NICOTINE 21 MG/24 HOUR PATCH TD SCH (11:13)
[2016-05-08] MEDS: TraMADol HCL 50 MG TABLET PO PRN (11:15)
[2016-05-08 12:15] VITALS: BP 121/79
[2016-05-08] MEDS: LORazepam 1 MG TABLET PO PRN ×2 (16:06→19:50)
[2016-05-08 17:32] VITALS: BP 134/74
[2016-05-08] MEDS: QUEtiapine FUMARATE 200 MG TABLET PO SCH (21:25)
[2016-05-08] MEDS: DIVALPROEX SODIUM 500 MG ER TABLET PO SCH (21:26)
[2016-05-09 08:00] VITALS: BP 125/75
[2016-05-09] MEDS: NICOTINE 21 MG/24 HOUR PATCH TD SCH (09:00)
[2016-05-09] MEDS: FLUoxetine HCL 20 MG CAPSULE PO SCH (09:00)
[2016-05-09 18:29] VITALS: BP 125/83
[2016-05-09] MEDS: QUEtiapine FUMARATE 200 MG TABLET PO SCH (21:00)
[2016-05-09] MEDS: DIVALPROEX SODIUM 500 MG ER TABLET PO SCH (21:00)
[2016-05-09] MEDS: LORazepam 1 MG TABLET PO SCH (22:00)
[2016-05-09] MEDS: ZOLPIDEM TARTRATE 5 MG TABLET PO PRN (23:38)
[2016-05-10 08:00] VITALS: BP 118/73
[2016-05-10] MEDS: LORazepam 1 MG TABLET PO SCH ×3 (09:00→17:45)
[2016-05-10] MEDS: NICOTINE 21 MG/24 HOUR PATCH TD SCH (09:00)
[2016-05-10] MEDS: FLUoxetine HCL 20 MG CAPSULE PO SCH (09:00)
[2016-05-10 17:00] VITALS: BP 124/86
[2016-05-10] MEDS: QUEtiapine FUMARATE 200 MG TABLET PO SCH (21:00)
[2016-05-10] MEDS: DIVALPROEX SODIUM 500 MG ER TABLET PO SCH (21:00)
[2016-05-10] MEDS: ZOLPIDEM TARTRATE 5 MG TABLET PO PRN (23:54)
[2016-05-11] MEDS: HydrOXYzine PAMOATE 25 MG CAPSULE PO PRN ×3 (00:16→18:16)
[2016-05-11 08:00] VITALS: BP 117/74
[2016-05-11] MEDS: NICOTINE 21 MG/24 HOUR PATCH TD SCH (09:00)
[2016-05-11] MEDS: FLUoxetine HCL 20 MG CAPSULE PO SCH ×2 (09:00→14:19)
[2016-05-11] MEDS ORDERED: LORazepam 2 MG TABLET PO ONE (14:45)
[2016-05-11 16:00] VITALS: BP 124/81
[2016-05-11] MEDS: TraMADol HCL 50 MG TABLET PO PRN (16:00)
[2016-05-11] MEDS: DIVALPROEX SODIUM 500 MG ER TABLET PO SCH (20:54)
[2016-05-11] MEDS: QUEtiapine FUMARATE 200 MG TABLET PO SCH (20:54)
[2016-05-12 08:00] VITALS: BP 112/71
[2016-05-12] MEDS: NICOTINE 21 MG/24 HOUR PATCH TD SCH (09:00)
[2016-05-12] MEDS: FLUoxetine HCL 20 MG CAPSULE PO SCH (11:51)
[2016-05-12] MEDS ORDERED: LORazepam 2 MG TABLET PO ONE (13:45)
[2016-05-12 14:43] VITALS: BP 120/74
[2016-05-12] MEDS: TraMADol HCL 50 MG TABLET PO PRN (14:45)
[2016-05-12 16:58] VITALS: BP 122/71
[2016-05-12] MEDS: QUEtiapine FUMARATE 200 MG TABLET PO SCH (20:20)
[2016-05-12] MEDS: DIVALPROEX SODIUM 500 MG ER TABLET PO SCH (20:20)
[2016-05-13] MEDS: NICOTINE 21 MG/24 HOUR PATCH TD SCH (09:00)
[2016-05-13 10:01] VITALS: BP 120/61
[2016-05-13] MEDS: FLUoxetine HCL 20 MG CAPSULE PO SCH (10:59)
[2016-05-13] MEDS ORDERED: LORazepam 1 MG TABLET PO ONE (13:45)
[2016-05-13 16:49] VITALS: BP 130/77
[2016-05-13] MEDS: TraMADol HCL 50 MG TABLET PO PRN (19:17)
[2016-05-13 19:19] VITALS: BP 128/78
[2016-05-13] MEDS: HydrOXYzine PAMOATE 25 MG CAPSULE PO PRN (20:34)
[2016-05-13] MEDS: DIVALPROEX SODIUM 500 MG ER TABLET PO SCH (22:04)
[2016-05-13] MEDS: QUEtiapine FUMARATE 200 MG TABLET PO SCH (22:05)
[2016-05-14] MEDS: FLUoxetine HCL 20 MG CAPSULE PO SCH (08:09)
[2016-05-14] MEDS: LORazepam 1 MG TABLET PO SCH ×3 (08:09→16:15)
[2016-05-14] MEDS: NICOTINE 21 MG/24 HOUR PATCH TD SCH (08:11)
[2016-05-14 09:53] VITALS: BP 103/60
[2016-05-14 16:35] VITALS: BP 142/88
[2016-05-14] MEDS: DIVALPROEX SODIUM 500 MG ER TABLET PO SCH (21:52)
[2016-05-14] MEDS: QUEtiapine FUMARATE 200 MG TABLET PO SCH (21:52)
[2016-05-15 04:52] VITALS: BP 130/75
[2016-05-15] MEDS: FLUoxetine HCL 20 MG CAPSULE PO SCH (08:19)
[2016-05-15] MEDS: LORazepam 1 MG TABLET PO SCH (08:19)
[2016-05-15] MEDS: NICOTINE 21 MG/24 HOUR PATCH TD SCH (08:20)
[2016-05-15] MEDS ORDERED: QUET200T PO (10:44)
[2016-05-15 11:33] VITALS: BP 154/101
== END 2016-05-15 13:39 | disposition home or self-care (01) | DRG 750 ==
LOC: 3EI 18:59
PROVIDERS: ADMIT Psychiatry & Neurology Psychiatry; ATTEND Psychiatry & Neurology Psychiatry
DX: F20.0 Paranoid schizophrenia (principal); R45.851 Suicidal ideations; Z91.19 Patient's noncompliance with other medical treatment and regimen; F25.1 Schizoaffective disorder, depressive type; F17.200 Nicotine dependence, unspecified, uncomplicated; R10.9 Unspecified abdominal pain; G89.29 Other chronic pain; R53.83 Other fatigue; Z91.5 Personal history of self-harm; Z87.81 Personal history of (healed) traumatic fracture; Z98.890 Other specified postprocedural states; Z88.8 Allergy status to other drugs, medicaments and biological substances; Z79.899 Other long term (current) drug therapy; Z84.89 Family history of other specified conditions; Z28.21 Immunization not carried out because of patient refusal
CPT/HCPCS: 72070; 72100; 87081